=== PATIENT | male | born 1985 | race Caucasian/White ===

== ENCOUNTER 2017-07-11 19:24 | Emergency (ER) | payer SELFPAY ==
[~2017-07-11] VITALS: Ht 180.3 cm; Wt 79.4 kg
[~2017-07-11 19:24] MED LIST: AMOX500 PO; BENZ100A PO; JOCK ITCH15 GM TP; LOPE2C PO; Naprosyn500 MG PO; OSEL75CA PO; PENVK500 PO; TRAM50 PO; Zofran8 MG PO
[2017-07-11] MEDS ORDERED: ATHLETE S FOOT TOP (19:50)
== END 2017-07-11 20:01 | disposition home or self-care (01) ==
LOC: ER 19:24
DX: K40.90 Unilateral inguinal hernia, without obstruction or gangrene, not specified as recurrent (principal); B35.6 Tinea cruris; Z88.5 Allergy status to narcotic agent; Z79.899 Other long term (current) drug therapy; F17.210 Nicotine dependence, cigarettes, uncomplicated
CPT/HCPCS: 99282

== ENCOUNTER 2017-10-14 20:06 | Emergency (ER) | payer MEDICAID ==
[~2017-10-14] VITALS: Ht 180.3 cm; Wt 72.4 kg
[~2017-10-14 20:06] MED LIST changes: +ATHLETE S FOOT TOP
== END 2017-10-14 22:13 | disposition home or self-care (01) ==
LOC: ER 20:06
DX: M25.512 Pain in left shoulder (principal); F17.210 Nicotine dependence, cigarettes, uncomplicated; Z88.5 Allergy status to narcotic agent
CPT/HCPCS: 73030

== ENCOUNTER 2018-11-04 14:56 | Emergency (ER) | payer OTHER ==
[~2018-11-04] VITALS: Ht 180.3 cm; Wt 79.4 kg
[~2018-11-04 14:56] MED LIST changes: +CYCL10 PO
[2018-11-04 15:24] LABS: BASOPHILS ABSOLUTE AUTO 0.03 K/mm3 (0.00-0.23); BASOPHILS PERCENT AUTO 0 % (0-2); EOSINOPHILS ABSOLUTE AUTO 0.15 K/mm3 (0.00-0.68); EOSINOPHILS PERCENT AUTO 2 % (0-6); Hematocrit 47.7 % (37.0-53.0); Hemoglobin 16.2 g/dL (13.5-17.5); IMMATURE GRAN ABSOLUTE AUTO 0.02 K/mm3 (0.00-0.10); IMMATURE GRAN PERCENT AUTO 0 % (0-1); LYMPHOCYTES ABSOLUTE AUTO 2.02 K/mm3 (0.84-5.20); LYMPHOCYTES PERCENT AUTO 27 % (21-46); MONOCYTES ABSOLUTE AUTO 0.43 K/mm3 (0.16-1.47); MONOCYTES PERCENT AUTO 6 % (4-13); Mean Corpuscular Volume 91 fL (80-100); Mean Platelet Volume 9.5 fL (9.1-12.4); NEUTROPHILS ABSOLUTE AUTO 4.81 K/mm3 (1.96-9.15); NEUTROPHILS PERCENT AUTO 64 % (41-73); Platelet Count 268 K/mm3 (150-400); RDW Coefficient Variation 12.3 % (11.7-14.2); RDW Standard Deviation 41.7 fL (35.1-46.3); Red Blood Cell Count 5.22 M/mm3 (4.30-5.90); White Blood Cell Count 7.46 K/mm3 (4.00-11.30)
[2018-11-04 15:44] LABS: Alanine Aminotransfer (ALT/SGP 19 U/L (12-78); Albumin, Blood 4.2 g/dL (3.4-5.0); Albumin/Globulin Ratio 1.2 (0.8-1.8); Alk Phos 47 U/L (50-136); Anion Gap 4 mmol/L (6-16); Aspartate Aminotrans (AST/SGOT 18 U/L (12-37); Bilirubin, Total 1.4 mg/dL (0.1-1.0); Blood Urea Nitrogen 11 mg/dL (8-24); Bun/Creatinine Ratio 11.2 (12.0-20.0); CO2, Blood 31 mmol/L (21-32); Calcium, Blood 8.9 mg/dL (8.5-10.1); Chloride, Blood 106 mmol/L (98-108); Creatinine, Blood 0.98 mg/dL (0.60-1.20); Globulin, Blood 3.5 g/dL (2.2-4.0); Glomerular Filtration Rate >60 (60-); Glucose, Blood 99 mg/dL (70-99); Potassium, Blood 4.5 mmol/L (3.5-5.5); Sodium, Blood 141 mmol/L (136-145); Total Protein, Blood 7.7 g/dL (6.4-8.2)
== END 2018-11-04 17:22 | disposition home or self-care (01) ==
LOC: ER 14:56
PROVIDERS: Physician Assistant
DX: I86.1 Scrotal varices (principal); Z88.5 Allergy status to narcotic agent
CPT/HCPCS: 36415; 76857; 80053; 85025; 99284-25

== ENCOUNTER → 2018-11-19 | Outpatient (CLI) | payer OTHER | END | disposition home or self-care (01) | LOC: LAB 18:52 → LAB SHORT 18:52 | DX: N50.9 Disorder of male genital organs, unspecified (principal); N50.82 Scrotal pain | CPT/HCPCS: 87070; 87075; 87077; 87147; 87186; 87205 ==

== ENCOUNTER → 2019-02-04 | Outpatient (CLI) | payer OTHER | END | disposition home or self-care (01) | LOC: PLD 13:29 → LAB SHORT 13:29 | DX: D10.5 Benign neoplasm of other parts of oropharynx (principal) | CPT/HCPCS: 88305 ==